=== PATIENT | male | born 1945 | race Caucasian/White ===

== ENCOUNTER → 2017-10-23 | Outpatient (CLI) | payer MEDICARE, OTHER ==
[~2017-10-23] MED LIST: ASPI-1197 PO; FINA5TAB41 PO; KETO10PO3 MC; MINO50CA2 PO; MULT-1203 PO; OXYB5TAB10 PO; RANI150C4 PO; SIMV40TA59 PO; TAMS0.4C32 PO
== END ==
LOC: OIH 15:20
PROVIDERS: ATTEND Internal Medicine
DX: M47.896 Other spondylosis, lumbar region (principal)
CPT/HCPCS: 72100

== ENCOUNTER → 2019-12-17 | Outpatient (CLI) | payer MEDICARE ==
[~2019-12-17] MED LIST changes: -MINO50CA2 PO; +MINO50CA6 PO; -OXYB5TAB10 PO; +OXYB5TAB15 PO
== END | disposition home or self-care (01) ==
LOC: SHCH 11:39
PROVIDERS: ATTEND Internal Medicine Cardiovascular Disease
DX: I87.2 Venous insufficiency (chronic) (peripheral) (principal)
CPT/HCPCS: 93970